=== PATIENT | female | born 1990 | race Caucasian/White ===

== ENCOUNTER 2016-08-29 13:14 | Emergency (ER) | payer BC ==
[2016-08-29] MEDS ORDERED: Heparin Sodium 5,000 Units/ML Vial IVPUSH ONE (13:52)
[2016-08-29] MEDS ORDERED: Heparin Sodium/D5W 25,000 UNITS/500 ML BAG IV SCH (14:00)
[2016-08-29] MEDS ORDERED: Acetaminophen 500 MG Tab PO ONE (14:52)
[2016-08-29 15:45] VITALS: BP 103/62
--- NOTE | 2016-08-30 16:01 | ER ---
DATE SEEN: 08/29/2016 HISTORY OF PRESENT ILLNESS: The patient is a 26-year-old female, G2, P1, at about 6 weeks. Went to Urgent Care initially. She presented with pleuritic chest pain that started this morning, left-sided, worse again when she takes a deep breath. She does have a history of pulmonary embolus in the past. She said this occurred before her first . After her first , she did not have any complications. She was scheduled to see Hematology for a consult soon before these symptoms started this morning. She has had workup for hypercoagulable state. Workup to this point has been negative. She does not report any long car rides or long periods of immobilization. She was at work today when this pain started. She said her shortness of breath is mild. She denies any swelling in her extremities. No vaginal discharge or bleeding. MEDICATIONS: 1. Multivitamins. 2. Ibuprofen. ALLERGIES: Latex. PAST MEDICAL HISTORY: Pulmonary embolus. REVIEW OF SYSTEMS: CONSTITUTIONAL: She has some chills, but no fevers. No nausea, no diarrhea. PHYSICAL EXAMINATION: VITALS: Afebrile. Vitally stable. NECK: Supple. LUNGS: Clear to auscultation bilaterally. HEART: Regular rate and rhythm. No rubs, gallops or murmurs. ABDOMEN: Soft, nontender, nondistended. No guarding or rebound. EXTREMITIES: Without cyanosis, clubbing, or edema. EMERGENCY DEPARTMENT COURSE: Her urgent care provider had spoken with [facility] and got acceptance, wanted her to have an EKG and heparin protocol before being transferred. Heparin was started here in the emergency department. EKG was in normal sinus rhythm without any acute ST changes. ASSESSMENT: 1. Pleuritic chest pain. 2. First-trimester . PLAN: Accepting physician suggested heparin be started; it has been started. She is transferred by ground, and at the time of transfer, she is vitally stable. Labs were drawn. /[id number] ANIYAH/CHELSY
== END 2016-08-29 15:37 ==
LOC: FB.ED 13:14
DX: O99.89 Other specified diseases and conditions complicating pregnancy, childbirth and the puerperium (principal); R07.81 Pleurodynia; I26.99 Other pulmonary embolism without acute cor pulmonale; Z91.040 Latex allergy status; Z3A.01 Less than 8 weeks gestation of pregnancy
CPT/HCPCS: 36415; 71010; 85025; 85379; 85610; 85730; 93005; 96365; 96366; 96375; 99285; A9270; J1644

== ENCOUNTER 2020-03-19 10:25 | Emergency (ER) | payer MEDICAID ==
--- NOTE | 2020-03-19 10:46 | EDM.PDOC ---
ED HPI GENERAL MEDICAL PROBLEM - General Stated Complaint: ABD PAIN Time Seen by Provider: 03/19/20 10:40 Source of Information: Reports: Patient History Limitations: Reports: No Limitations - History of Present Illness INITIAL COMMENTS - FREE TEXT/NARRATIVE: 29-year-old female who reports has been having intermittent lower abdominal/pelvic pain/cramping when she breast-feeds since her delivery on 02/19 but 2 days ago she reports that the pain came when she breast fed but just did not go away and since that time she has had progressively worsening pain in her lower abdomen and pelvis. It is a constant pain but there is a cramping with sharp and shooting pain. It is all across her lower abdomen. It is worse with movement and with palpation. She reports the pain as a 9/10 and she is obviously in pain with tachycardia and a pale and pasty appearance. She has had chills but no measured fever. There has been nausea but no vomiting. She has had decreased po intake. She had a bowel movement yesterday that was normal. She has had no dysuria or hematuria. She has had some dark blood per her vagina but "nothing different from my usual post delivery bleeding". And there has been no foul smell to the vaginal discharge. She is currently on Lovenox secondary to previous PE in 2012. Apparently, she had been on Coumadin for a year after her initial PE and during this , they have placed her on Lovenox. No cough. No sore throat. No nasal congestion. No difficulty breathing. There are no other associated signs or symptoms. There are no other modifying factors. 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: NSAIDS (Ibuprofen) Lower Abdominal Pain Score (Numeric/FACES): 9 - Related Data Allergies Allergy/AdvReac Type Severity Reaction Status Date / Time latex Allergy Hives Verified 03/19/20 12:49 Home Meds: Home Meds Enoxaparin [Lovenox] 30 mg SUBCUT DAILY 03/19/20 [History] Past Medical History Cardiovascular History: Reports: Blood Clots/VTE/DVT Respiratory History: Reports: PE 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 - Past Surgical History HEENT Surgical History: Reports: Oral Surgery (Egan teeth extraction) Social & Family History - Family History Respiratory: Reports: Other (See Below) Other Respiratory Family Hisory: hx uncle with PE. - Tobacco Use Tobacco Use Status *Q: Unknown Ever Used Tobacco (Nonsmoker.) - Caffeine Use Caffeine Use: Reports: Tea - Alcohol Use Alcohol Use History: No ED ROS GENERAL - Review of Systems Review Of Systems: See Below Constitutional: Reports: Chills, Malaise, Decreased Appetite HEENT: Reports: No Symptoms Respiratory: Reports: No Symptoms Cardiovascular: Reports: No Symptoms Endocrine: Reports: No Symptoms GI/Abdominal: Reports: Abdominal Pain, Nausea : Reports: No Symptoms Musculoskeletal: Reports: Back Pain (Lower midline back pain) Skin: Reports: No Symptoms Psychiatric: Reports: No Symptoms Hematologic/Lymphatic: Reports: Easy Bleeding (On Lovenox.) Immunologic: Reports: No Symptoms ED EXAM, GI/ABD - Physical Exam Exam: See Below Exam Limited By: No Limitations General Appearance: Alert, Moderate Distress, Obese, Other (Is somewhat pale and pasty appearing) Eyes: Bilateral: Normal Appearance (Sclerae are anicteric), EOMI Ears: Normal External Exam, Hearing Grossly Normal Nose: Normal Inspection, Normal Mucosa, No Blood Throat/Mouth: Normal Lips, Normal Voice, No Airway Compromise, Other (Dry mucous membranes) Head: Atraumatic, Normocephalic Neck: Normal Inspection, Supple, Non-Tender, Full Range of Motion Respiratory/Chest: Lungs Clear, Normal Breath Sounds, Chest Non-Tender, Other (Increased respiratory rate.) Cardiovascular: Normal Peripheral Pulses, No Gallop, No JVD, No Murmur, Tachycardia GI/Abdominal Exam: Soft, Guarding, Rebound, Tender (Tender in her infraumbilical abdomen, more so in the middle.) Back Exam: Normal Inspection, Full Range of Motion. No: CVA Tenderness (R), CVA Tenderness (L) Extremities: No Pedal Edema, Pallor, Other (Cool peripherally) Neurological: Alert, Oriented, CN II-XII Intact, Normal Cognition, No Motor/Sensory Deficits Skin Exam: Intact, No Rash, Cool (Peripherally. But warm centrally) Course - Vital Signs Last Recorded V/S: Last Vital Signs Temp 36.4 C 03/19/20 10:26 Pulse 133 H 03/19/20 10:26 Resp 18 03/19/20 10:26 BP 125/79 03/19/20 10:26 Pulse Ox 100 03/19/20 10:26 - Orders/Labs/Meds Orders: Active Orders 24 hr Category Date Time Status Urinary Catheter Insertion [Insert Urinary Catheter] [ Care 03/19/20 11:00 Ordered OM.PC] Q24H CULTURE BLOOD [BC] Urgent Lab 03/19/20 10:47 Received CULTURE BLOOD [BC] Urgent Lab 03/19/20 10:47 Received CULTURE URINE [RM] Stat Lab 03/19/20 11:50 Received Blood Culture x2 Reflex Set [OM.PC] Urgent Oth 03/19/20 10:46 Ordered Peripheral IV Insertion Adult [OM.PC] Routine Oth 03/19/20 10:46 Ordered Peripheral IV Insertion Adult [OM.PC] Routine Oth 03/19/20 12:38 Ordered Labs: Laboratory Tests 03/19/20 03/19/20 03/19/20 Range/Units 10:55 10:55 10:55 WBC 21.8 H (3.0-10.3) x10-3/uL RBC 4.86 (3.60-5.20) x10(6)uL Hgb 13.7 (11.4-15.5) g/dL Hct 42.0 (34.2-48.2) % MCV 86.6 (76.7-100.5) fL MCH 28.1 (23.9-33.9) pg MCHC 32.5 (31.9-34.8) g/dL RDW 12.8 (12.3-16.5) % Plt Count 350 (151-488) x10(3)uL MPV 7.7 (7.1-12.4) fL Add Manual Diff Yes Neutrophils % (Manual) 85 H (46-82) % Band Neutrophils % 6 (0-6) % Lymphocytes % (Manual) 4 L (13-37) % Monocytes % (Manual) 5 (4-12) % Sodium 140 (135-145) mmol/L Potassium 3.9 (3.5-5.3) mmol/L Chloride 103 (100-110) mmol/L Carbon Dioxide 24 (21-32) mmol/L BUN 16 (7-18) mg/dL Creatinine 0.9 (0.55-1.02) mg/dL Est Cr Clr Drug Dosing 93.88 mL/min Estimated GFR (MDRD) > 60 (>60) BUN/Creatinine Ratio 17.8 (9-20) Glucose 108 (80-116) mg/dL Lactic Acid (0.4-2.0) mmol/L Calcium 9.0 (8.6-10.2) mg/dL Total Bilirubin 0.7 (0.1-1.3) mg/dL AST 11 (5-25) IU/L ALT 25 (12-36) U/L Alkaline Phosphatase 99 (56-112) IU/L C-Reactive Protein 29.9 H* (0.5-0.9) mg/dL Total Protein 7.6 (6.0-8.0) g/dL Albumin 2.6 L (3.5-5.2) g/dL Globulin 5.0 g/dL Albumin/Globulin Ratio 0.5 Lipase 50 L (73-393) U/L Urine Color (YELLOW) Urine Appearance (CLEAR) Urine pH (5.0-6.5) Ur Specific [place] (1.010-1.025) Urine Protein (NEGATIVE) mg/dL Urine Glucose (UA) (NORMAL) mg/dL Urine Ketones (NEGATIVE) mg/dL Urine Occult Blood (NEGATIVE) Urine Nitrite (NEGATIVE) Urine Bilirubin (NEGATIVE) Urine Urobilinogen (NEGATIVE) mg/dL Ur Leukocyte Esterase (NEGATIVE) Urine RBC (0-5) Urine WBC (0-5) Ur Squamous Epith Cells (NS,R,O) Urine Bacteria (NS) Urine Mucus (NS) 03/19/20 03/19/20 Range/Units 10:55 11:50 WBC (3.0-10.3) x10-3/uL RBC (3.60-5.20) x10(6)uL Hgb (11.4-15.5) g/dL Hct (34.2-48.2) % MCV (76.7-100.5) fL MCH (23.9-33.9) pg MCHC (31.9-34.8) g/dL RDW (12.3-16.5) % Plt Count (151-488) x10(3)uL MPV (7.1-12.4) fL Add Manual Diff Neutrophils % (Manual) (46-82) % Band Neutrophils % (0-6) % Lymphocytes % (Manual) (13-37) % Monocytes % (Manual) (4-12) % Sodium (135-145) mmol/L Potassium (3.5-5.3) mmol/L Chloride (100-110) mmol/L Carbon Dioxide (21-32) mmol/L BUN (7-18) mg/dL Creatinine (0.55-1.02) mg/dL Est Cr Clr Drug Dosing mL/min Estimated GFR (MDRD) (>60) BUN/Creatinine Ratio (9-20) Glucose (80-116) mg/dL Lactic Acid 0.8 (0.4-2.0) mmol/L Calcium (8.6-10.2) mg/dL Total Bilirubin (0.1-1.3) mg/dL AST (5-25) IU/L ALT (12-36) U/L Alkaline Phosphatase (56-112) IU/L C-Reactive Protein (0.5-0.9) mg/dL Total Protein (6.0-8.0) g/dL Albumin (3.5-5.2) g/dL Globulin g/dL Albumin/Globulin Ratio Lipase (73-393) U/L Urine Color [place] (YELLOW) Urine Appearance Slightly cloudy (CLEAR) Urine pH 5.0 (5.0-6.5) Ur Specific [place] 1.025 (1.010-1.025) Urine Protein 30 H (NEGATIVE) mg/dL Urine Glucose (UA) Normal (NORMAL) mg/dL Urine Ketones 50 H (NEGATIVE) mg/dL Urine Occult Blood Moderate H (NEGATIVE) Urine Nitrite Positive H (NEGATIVE) Urine Bilirubin Small H (NEGATIVE) Urine Urobilinogen 4 H (NEGATIVE) mg/dL Ur Leukocyte Esterase Small H (NEGATIVE) Urine RBC 5-10 H (0-5) Urine WBC 5-10 H (0-5) Ur Squamous Epith Cells Few H (NS,R,O) Urine Bacteria Few H (NS) Urine Mucus Moderate H (NS) Meds: Medications Discontinued Medications Generic Name Dose Route Start Last Admin Trade Name Alec PRN Reason Stop Dose Admin Ampicillin Sodium 2 gm 03/19/20 12:45 03/19/20 12:45 Ampicillin IVPUSH 03/19/20 12:46 2 gm ONETIME ONE Administration Hydromorphone HCl 0.5 mg 03/19/20 10:48 03/19/20 10:54 Dilaudid IVPUSH 03/19/20 10:49 0.5 mg ONETIME ONE Administration Hydromorphone HCl 1 mg 03/19/20 11:32 03/19/20 11:35 Dilaudid IVPUSH 03/19/20 11:33 1 mg ONETIME ONE Administration Sodium Chloride 1,000 mls @ 999 mls/hr 03/19/20 10:48 03/19/20 10:54 Normal Saline IV 03/19/20 11:48 999 mls/hr .BOLUS ONE Administration Sodium Chloride 1,000 mls @ 150 mls/hr 03/19/20 11:00 03/19/20 12:00 Normal Saline IV 999 mls/hr ASDIRECTED EVANGELINA Infusion Sodium Chloride 1,000 mls @ 999 mls/hr 03/19/20 12:07 03/19/20 12:29 Normal Saline IV 03/19/20 13:07 Not Given .BOLUS ONE Gentamicin Sulfate 500 mg/ 112.5 mls @ 200 mls/hr 03/19/20 12:14 Sodium Chloride IV 03/19/20 12:43 ONETIME ONE Clindamycin/Sodium Chloride 900 mg in 50 mls @ 100 mls/hr 03/19/20 12:30 03/19/20 12:37 Cleocin In Ns IV 03/19/20 12:59 100 mls/hr ONETIME ONE Administration Gentamicin Sulfate 400 mg/ 110 mls @ 110 mls/hr 03/19/20 13:00 03/19/20 13:04 Sodium Chloride IV 03/19/20 13:59 110 mls/hr ONETIME ONE Administration Sodium Chloride 1,000 mls @ 999 mls/hr 03/19/20 13:12 03/19/20 13:12 Normal Saline IV 03/19/20 14:12 999 mls/hr .BOLUS ONE Administration Ondansetron HCl 4 mg 03/19/20 10:48 03/19/20 10:54 Zofran IVPUSH 03/19/20 10:49 4 mg ONETIME ONE Administration Sodium Chloride 10 ml 03/19/20 10:46 03/19/20 12:35 Saline Flush FLUSH 10 ml ASDIRECTED PRN Administration Keep Vein Open Sodium Chloride 10 ml 03/19/20 12:38 Saline Flush FLUSH ASDIRECTED PRN Keep Vein Open - Radiology Interpretation Free Text/Narrative:: Pelvic ultrasound showed evidence of retained placenta. There was no free fluid in the pelvis. The right ovary appeared normal. This was per Dr. Marvin who called and discussed the results with me.. - Re-Assessments/Exams Free Text/Narrative Re-Assessment/Exam: 03/19/20 12:10: Patient still was pulse in the 116 to 130 range. Her blood pressure has maintained in the 110 systolic range. Her pain is down to 82-3/10 at present. She remains afebrile. Her white blood cell count is 21.8 K and her CRP is 30. The pelvic ultrasound did show retained placenta. She will need O B/UPPER CUTTER MACHINE specially services which are not available at [facility]. I will order the patient ampicillin, clindamycin and gentamicin to be given IV. I'll also order another 1 L bolus of normal saline IV. Blood cultures 2 have already been obtained. A urine was obtained and did show some evidence of infection and the urine was cultured as well. I did call [facility] and they will have to get the STRIKE OFF MACHINE OPERATOR specialist to call me back. 03/19/20 12:40: I discussed the patient's case with Dr. Ndiaye, STRIKE OFF MACHINE OPERATOR specialist [facility] [place], and she has agreed to accept the patient in transf er. She is in agreement with the antibiotic choice and wants the patient to continue to get IV saline. The patient will need transferred via ALS ambulance to [facility] in [place] for direct admission to STRIKE OFF MACHINE OPERATOR services. 03/19/20 13:10: All antibiotics are either infused or are being infused at present. Her blood pressure is still in the 110-120 systolic range. She has only had about 100 mL of urine out. Rate remains in the 120 to 130 range. Her pain is a 3/10. I will order another liter of normal saline to be given IV as a bolus. EMS has been called and is coming to take the patient to transport her to [facility]. Departure - Departure Time of Disposition: 13:36 Disposition: DC/Tfer to [facility] 02 Condition: Fair (Guarded.) Clinical Impression: septic endometritis Retained placenta Qualifiers: Retained placenta detail: portions of placenta Qualified Code(s): O73.1 - Retained portions of placenta and membranes, without hemorrhage - Discharge Information Referrals: Annie Kim NP [Primary Care Provider] - Forms: ED Department Discharge Sepsis Event Note (ED) - Focused Exam Vital Signs: Vital Signs Temp Pulse Resp BP Pulse Ox 03/19/20 10:26 36.4 C 133 H 18 125/79 100 - My Orders Last 24 Hours: My Active Orders 03/19/20 10:46 Blood Culture x2 Reflex Set [OM.PC] Urgent Peripheral IV Insertion Adult [OM.PC] Routine 03/19/20 10:47 CULTURE BLOOD [BC] Urgent CULTURE BLOOD [BC] Urgent 03/19/20 11:00 Urinary Catheter Insertion [Insert Urinary Catheter] [OM.PC] Q24H 03/19/20 11:50 CULTURE URINE [RM] Stat 03/19/20 12:38 Peripheral IV Insertion Adult [OM.PC] Routine - Assessment/Plan Last 24 Hours: My Active Orders 03/19/20 10:46 Blood Culture x2 Reflex Set [OM.PC] Urgent Peripheral IV Insertion Adult [OM.PC] Routine 03/19/20 10:47 CULTURE BLOOD [BC] Urgent CULTURE BLOOD [BC] Urgent 03/19/20 11:00 Urinary Catheter Insertion [Insert Urinary Catheter] [OM.PC] Q24H 03/19/20 11:50 CULTURE URINE [RM] Stat 03/19/20 12:38 Peripheral IV Insertion Adult [OM.PC] Routine
[2020-03-19] MEDS: HYDROmorphone 2 MG/ML SDV IVPUSH ONE ×2 (10:54→11:35)
[2020-03-19] MEDS: Sodium Chloride 0.9% 1,000 ML IV ONE ×3 (10:54→13:12)
[2020-03-19] MEDS: Ondansetron 4 MG/2 ML SDV IVPUSH ONE (10:54)
[2020-03-19 11:20] VITALS: BP 125/79; PULSE 133
[2020-03-19] MEDS: Sodium Chloride 0.9% 1,000 ML IV SCH (11:59)
[2020-03-19] MEDS ORDERED: Ampicillin 1 GM Vial IVPUSH ONE (12:13)
[2020-03-19] MEDS ORDERED: Clindamycin Phosphate 900 MG in Sodium Chloride 0.9% 100 ML IV ONE (12:14)
[2020-03-19] MEDS ORDERED: Gentamicin 500 MG in Sodium Chloride 0.9% 100 ML IV ONE (12:14)
--- NOTE | 2020-03-19 12:30 | US ---
INDICATION: Pelvic pain, question retained products of conception. ULTRASOUND OF THE PELVIS NON-OB LIMITED: INDICATION: 8 days with manual removal of placenta, question retained products of conception - need better visualization of the endometrial cavity than possible with transabdominal probe. TRANSVAGINAL PELVIC ULTRASOUND NON-OB: Utilizing 2-D realtime and duplex Doppler spectral analysis, as well as color flow imaging, initially with transabdominal probe and then with transvaginal probe for better visualization of the endometrial cavity, multiple ultrasonic images of the uterus were obtained . There is fluid in endometrial cavity which is prominent and along the posterior aspect there appears to be echogenic material compatible with retained placenta. A fairly large amount of retained placenta is suggested. Some of the placenta appears to be . However, the larger portion of this retained placental tissues appear to remain adhered to the uterine wall. No definite uterine mass was identified. No definite adnexal mass or free fluid collection was seen. The right ovary was visualized appearing normal measuring 1.5 x 3.5 x 1.2 cm. The left ovary was not seen. IMPRESSION: Findings are compatible with retained products of conception. Report was called to Dr. Frausto at 1159 hours. [facility]
[2020-03-19] MEDS: Sodium Chloride 0.9% 10 ML Syringe FLUSH PRN (12:35)
[2020-03-19] MEDS: Clindamycin in 0.9 % Sod Chlor 900 MG/50 ML BAG IV ONE (12:37)
[2020-03-19] MEDS ORDERED: Sodium Chloride 0.9% 10 ML Syringe FLUSH PRN (12:38)
[2020-03-19] MEDS: Ampicillin 2 GM Vial IVPUSH ONE (12:45)
[2020-03-19] MEDS: Gentamicin 400 MG in Sodium Chloride 0.9% 100 ML IV ONE (13:04)
== END 2020-03-19 13:36 ==
LOC: FB.ED 10:25
DX: O86.12 Endometritis following delivery (principal); O73.1 Retained portions of placenta and membranes, without hemorrhage; O99.215 Obesity complicating the puerperium; E66.9 Obesity, unspecified; Z79.899 Other long term (current) drug therapy; Z91.040 Latex allergy status
CPT/HCPCS: 36415; 51702; 76830; 76857; 80053; 81001; 83605; 83690; 85025; 86140; 87040; 87086; 96365; 96368; 96375; 96376; 99285; J0290; J1170; J1580; J2405; J3490; J7030

== ENCOUNTER 2021-06-21 08:15 | Emergency (ER) | payer MEDICAID ==
[2021-06-21] MEDS ORDERED: Ketorolac 30 MG/ML SDV IM STA (08:46)
[2021-06-21] MEDS ORDERED: SUMAtriptan 6 MG/0.5 ML SDV SUBCUT ONE (08:47)
[2021-06-21] MEDS ORDERED: Ondansetron 4 MG Tab.DIS PO STA (08:47)
[2021-06-21 10:45] VITALS: BP 103/58; PULSE 66
== END 2021-06-21 10:15 | disposition home or self-care (01) ==
LOC: FB.ED 08:15
DX: G43.909 Migraine, unspecified, not intractable, without status migrainosus (principal); F41.9 Anxiety disorder, unspecified; F32.A Depression, unspecified; E66.9 Obesity, unspecified; Z91.040 Latex allergy status; Z79.899 Other long term (current) drug therapy
CPT/HCPCS: 96372; 99283; 99284; J1885; J3030; Q0162

== ENCOUNTER 2024-04-25 08:11 | Day surgery (SDC) | payer BC, MEDICAID ==
[2024-04-25] MEDS ORDERED: Lidocaine 2% Viscous Solution 15 ML UD PO ONE (08:12)
[2024-04-25] MEDS ORDERED: Propofol 200 MG/20 ML SDV IV ONE (08:12)
[2024-04-25] MEDS ORDERED: Lidocaine 2% 100 MG/5 ML Syringe IVPUSH ONE (08:12)
[2024-04-25] MEDS ORDERED: Midazolam 1 MG/ML 2 ML SDV IV ONE (08:12)
[2024-04-25] MEDS ORDERED: Sodium Chloride 0.9% 10 ML Syringe FLUSH PRN (08:15)
[2024-04-25] MEDS: Lactated Ringers 1,000 ML IV SCH (09:42)
[2024-04-25] MEDS: Simethicone Drops 40 MG/0.6 ML 30 ML Bottle ONE (10:23)
[2024-04-25 12:16] VITALS: BP 101/65; PULSE 65
== END 2024-04-25 11:55 | disposition home or self-care (01) ==
LOC: FB.SDS 08:11
PROVIDERS: ATTEND Surgery
DX: K29.50 Unspecified chronic gastritis without bleeding (principal); K21.00 Gastro-esophageal reflux disease with esophagitis, without bleeding; K44.9 Diaphragmatic hernia without obstruction or gangrene; F41.8 Other specified anxiety disorders; Z79.899 Other long term (current) drug therapy; Z91.040 Latex allergy status
CPT/HCPCS: 00731; 88305; 88342; A9270-GY; J2250; J2704; J7120

== ENCOUNTER 2024-08-01 01:58 | Emergency (ER) | payer BC, MEDICAID ==
[2024-08-01 03:30] VITALS: BP 123/90; PULSE 90
== END 2024-08-01 03:28 ==
LOC: FB.ED 01:58
DX: I80.02 Phlebitis and thrombophlebitis of superficial vessels of left lower extremity (principal); E66.9 Obesity, unspecified; Z91.040 Latex allergy status; Z79.899 Other long term (current) drug therapy; Z86.16 Personal history of COVID-19
CPT/HCPCS: 99284